=== PATIENT | female | born 1980 | race African-American/Black ===

== ENCOUNTER 2024-04-01 09:15 | Emergency (ER) | payer MEDICAID, OTHER ==
[~2024-04-01] VITALS: Ht 170.2 cm; Wt 85.0 kg
[2024-04-01 09:19] VITALS: TEMP 98.5; O2SAT 98
[2024-04-01] MEDS ORDERED: IBUPROFEN 600MG TABLET PO STA (09:22)
[2024-04-01 09:43] LABS: BASOPHILS % 1.1 % (0.0-2.0); EOSINOPHILS % 3.1 % (0.0-5.0); HEMATOCRIT. 42.9 % (36.0-48.0); LYMPHOCYTES % 24.5 % (20.0-50.0); MEAN CORPUSCULAR HEMOGLOBIN 28.7 pg (28.0-32.0); MEAN CORPUSCULAR HGB CONC 32.6 g/dL (31.0-37.0); MEAN PLATELET VOLUME 9.5 fl (7.4-10.4); MONOCYTES % 12.6 % (2.0-8.0); NEUTROPHILS % 58.7 % (40.0-76.0); PLATELET 188 x1000/uL (130-400); RED BLOOD CELL COUNT 4.88 mill/uL (4.2-5.4); RED CELL DISTRIBUTION WIDTH 14.6 % (11.6-14.6); WHITE BLOOD COUNT 3.8 x1000/uL (4.5-11.0)
[2024-04-01 09:51] LABS: CHLORIDE 105 mEq/L (98-107); POTASSIUM 4.1 mEq/L (3.5-5.1); SODIUM 138 mEq/L (136-145)
[2024-04-01 09:52] LABS: CALCIUM 9.5 mg/dL (8.7-10.4); CARBON DIOXIDE 25 mEq/L (21-32)
[2024-04-01 09:57] LABS: CREATININE 0.8 mg/dL (0.6-1.0); GLUCOSE 119 mg/dL (70-105); UREA NITROGEN BLOOD 15 mg/dL (9-23)
[2024-04-01 10:14] LABS: TROPONIN I HIGH SENSITIVITY < 4 ng/L (3.0-34)
[2024-04-01 11:51] VITALS: BP 112/47; PULSE 82; RESP 16
[2024-04-01] MEDS: IBUPROFEN 600MG TABLET PO NR (11:51)
== END 2024-04-01 12:17 | disposition home or self-care (01) ==
LOC: ER 09:49
DX: R07.89 Other chest pain (principal); F41.9 Anxiety disorder, unspecified; Z86.59 Personal history of other mental and behavioral disorders
CPT/HCPCS: 36415; 71045; 80048; 84484; 85025; 93005; 99285